=== PATIENT | female | born 1955 | race Caucasian/White ===

== ENCOUNTER 2018-12-31 08:55 | Outpatient (RCR) | payer MEDICARE, OTHER | END 2019-01-05 14:00 | disposition home or self-care (01) | LOC: OPPGERO 08:55 | DX: F33.1 Major depressive disorder, recurrent, moderate (principal); F41.1 Generalized anxiety disorder; E11.9 Type 2 diabetes mellitus without complications; I10 Essential (primary) hypertension; E03.9 Hypothyroidism, unspecified; E78.5 Hyperlipidemia, unspecified; Z90.710 Acquired absence of both cervix and uterus; Z79.84 Long term (current) use of oral hypoglycemic drugs ==

== ENCOUNTER 2019-01-06 11:24 | Outpatient (RCR) | payer MEDICARE, OTHER | END 2019-02-05 15:22 | LOC: OPPGERO 11:24 | DX: F33.1 Major depressive disorder, recurrent, moderate (principal); F41.1 Generalized anxiety disorder; E11.9 Type 2 diabetes mellitus without complications; E78.5 Hyperlipidemia, unspecified; E03.9 Hypothyroidism, unspecified; M79.7 Fibromyalgia; Z90.710 Acquired absence of both cervix and uterus; Z98.818 Other dental procedure status; Z79.1 Long term (current) use of non-steroidal anti-inflammatories (NSAID); Z79.84 Long term (current) use of oral hypoglycemic drugs; Z79.51 Long term (current) use of inhaled steroids ==

== ENCOUNTER 2019-02-06 08:38 | Outpatient (RCR) | payer MEDICARE, OTHER | END 2019-03-04 14:24 | disposition still patient (30) | LOC: OPPGERO 08:38 | DX: F33.1 Major depressive disorder, recurrent, moderate (principal); F41.1 Generalized anxiety disorder; E11.9 Type 2 diabetes mellitus without complications; E78.5 Hyperlipidemia, unspecified; E03.9 Hypothyroidism, unspecified; M79.7 Fibromyalgia; Z90.710 Acquired absence of both cervix and uterus; Z79.82 Long term (current) use of aspirin; Z79.84 Long term (current) use of oral hypoglycemic drugs ==

== ENCOUNTER 2019-03-09 07:47 | Outpatient (RCR) | payer MEDICARE, OTHER | END 2019-04-07 12:33 | disposition home or self-care (01) | LOC: OPPGERO 07:47 | DX: F33.1 Major depressive disorder, recurrent, moderate (principal); F41.1 Generalized anxiety disorder; E11.9 Type 2 diabetes mellitus without complications; E03.9 Hypothyroidism, unspecified; E78.5 Hyperlipidemia, unspecified; M79.7 Fibromyalgia; Z90.710 Acquired absence of both cervix and uterus; Z79.82 Long term (current) use of aspirin; Z79.899 Other long term (current) drug therapy ==

== ENCOUNTER 2019-04-09 10:54 | Outpatient (RCR) | payer MEDICARE, OTHER | END 2019-05-08 14:05 | LOC: OPPGERO 10:54 | DX: F33.1 Major depressive disorder, recurrent, moderate (principal); F41.1 Generalized anxiety disorder; E11.9 Type 2 diabetes mellitus without complications; E78.5 Hyperlipidemia, unspecified; E03.9 Hypothyroidism, unspecified; M79.7 Fibromyalgia; Z79.82 Long term (current) use of aspirin; Z79.84 Long term (current) use of oral hypoglycemic drugs; Z79.899 Other long term (current) drug therapy; Z90.710 Acquired absence of both cervix and uterus ==

== ENCOUNTER 2019-05-11 07:53 | Outpatient (RCR) | payer MEDICARE, OTHER | END 2019-06-05 14:27 | LOC: OPPGERO 07:53 | DX: F33.1 Major depressive disorder, recurrent, moderate (principal); F41.1 Generalized anxiety disorder; E11.9 Type 2 diabetes mellitus without complications; E78.5 Hyperlipidemia, unspecified; E03.9 Hypothyroidism, unspecified; F12.90 Cannabis use, unspecified, uncomplicated; M79.7 Fibromyalgia; Z63.0 Problems in relationship with spouse or partner; Z90.710 Acquired absence of both cervix and uterus; Z79.82 Long term (current) use of aspirin; Z79.84 Long term (current) use of oral hypoglycemic drugs; Z79.899 Other long term (current) drug therapy ==

== ENCOUNTER 2019-06-08 07:46 | Outpatient (RCR) | payer MEDICARE, OTHER | END 2019-07-07 13:24 | disposition still patient (30) | LOC: OPPGERO 07:46 | DX: F33.1 Major depressive disorder, recurrent, moderate (principal); F41.1 Generalized anxiety disorder; E11.9 Type 2 diabetes mellitus without complications; E78.5 Hyperlipidemia, unspecified; E03.9 Hypothyroidism, unspecified; F12.90 Cannabis use, unspecified, uncomplicated; M79.7 Fibromyalgia; Z63.0 Problems in relationship with spouse or partner; Z63.8 Other specified problems related to primary support group; Z79.82 Long term (current) use of aspirin; Z79.84 Long term (current) use of oral hypoglycemic drugs; Z79.899 Other long term (current) drug therapy; Z90.710 Acquired absence of both cervix and uterus; Z91.5 Personal history of self-harm ==

== ENCOUNTER 2019-07-08 07:57 | Outpatient (RCR) | payer MEDICARE, OTHER | END 2019-08-06 15:56 | LOC: OPPGERO 07:57 | DX: F33.1 Major depressive disorder, recurrent, moderate (principal); F41.1 Generalized anxiety disorder; F12.90 Cannabis use, unspecified, uncomplicated; M79.7 Fibromyalgia; E11.9 Type 2 diabetes mellitus without complications; E78.5 Hyperlipidemia, unspecified; E03.9 Hypothyroidism, unspecified; Z79.82 Long term (current) use of aspirin; Z79.84 Long term (current) use of oral hypoglycemic drugs; Z90.710 Acquired absence of both cervix and uterus ==

== ENCOUNTER 2019-08-07 08:18 | Outpatient (RCR) | payer MEDICARE, OTHER | END 2019-09-04 15:07 | LOC: OPPGERO 08:18 | DX: F33.1 Major depressive disorder, recurrent, moderate (principal); F41.1 Generalized anxiety disorder; F12.90 Cannabis use, unspecified, uncomplicated; M79.7 Fibromyalgia; R63.0 Anorexia; E63.9 Nutritional deficiency, unspecified; E11.9 Type 2 diabetes mellitus without complications; I10 Essential (primary) hypertension; E78.5 Hyperlipidemia, unspecified; E03.9 Hypothyroidism, unspecified; Z63.0 Problems in relationship with spouse or partner; Z79.82 Long term (current) use of aspirin; Z79.84 Long term (current) use of oral hypoglycemic drugs; Z79.899 Other long term (current) drug therapy; Z90.710 Acquired absence of both cervix and uterus; Z91.5 Personal history of self-harm ==

== ENCOUNTER 2019-09-07 09:22 | Outpatient (RCR) | payer MEDICARE, OTHER | END 2019-10-06 16:08 | LOC: OPPGERO 09:22 | DX: F33.1 Major depressive disorder, recurrent, moderate (principal); F41.1 Generalized anxiety disorder; Z79.82 Long term (current) use of aspirin; Z79.51 Long term (current) use of inhaled steroids; Z79.84 Long term (current) use of oral hypoglycemic drugs; Z79.899 Other long term (current) drug therapy ==